=== PATIENT | male | born 1945 | race Hispanic/Latino ===

== ENCOUNTER 2016-10-05 07:01 | Day surgery (SDC) | payer MEDICARE, MEDICAID ==
[~2016-10-05 07:01] MED LIST: ATORVASTATIN CA10 MG PO; JANUMET XR1 TA1 PO; JANUMET XR1 TAB PO; LOSARTAN POT25 MG PO; PREDNISONE2.5 MG PO; PROTONIX20 M1 PO; SYMBICORT 80-4.5MCG; THEO-24 100 MG1 CAP
[2016-10-05] MEDS ORDERED: PANTOPRAZOLE SO40 MG PO (07:14)
[2016-10-05] MEDS ORDERED: LOSARTAN POT25 MG PO (07:14)
[2016-10-05] MEDS ORDERED: THEO-24300 MG PO (07:15)
[2016-10-05] MEDS ORDERED: LIPITOR40 M1 PO (07:16)
[2016-10-05] MEDS ORDERED: JANUMET1 TA1 PO (07:16)
[2016-10-05] MEDS ORDERED: SYMBICORT1 AE1 IN (07:17)
[2016-10-05] MEDS ORDERED: TEMAZEPAM15 MG PO (07:17)
[2016-10-05 09:22] VITALS: BP 129/66
== END 2016-10-05 09:45 | disposition home or self-care (01) ==
LOC: ENDO 07:01 → ORM 21:15 → ENDO 21:15
PROVIDERS: ATTEND Internal Medicine Gastroenterology
PROC: 0DBP8ZX Excision of Rectum, Via Natural or Artificial Opening Endoscopic, Diagnostic (ICD-10-PCS; principal; 2016-10-05)
DX: Z12.11 Encounter for screening for malignant neoplasm of colon (principal); D12.8 Benign neoplasm of rectum; K64.4 Residual hemorrhoidal skin tags; Q43.8 Other specified congenital malformations of intestine; K57.30 Diverticulosis of large intestine without perforation or abscess without bleeding; K64.8 Other hemorrhoids; Z86.010 Personal history of colon polyps; I10 Essential (primary) hypertension; E78.00 Pure hypercholesterolemia, unspecified; E11.9 Type 2 diabetes mellitus without complications; J45.909 Unspecified asthma, uncomplicated; R13.10 Dysphagia, unspecified; K29.70 Gastritis, unspecified, without bleeding; Q40.8 Other specified congenital malformations of upper alimentary tract; K22.70 Barrett's esophagus without dysplasia; K44.9 Diaphragmatic hernia without obstruction or gangrene